=== PATIENT | female | born 1975 | race Caucasian/White ===

== ENCOUNTER 2023-07-27 07:05 | Outpatient (CLI) | payer OTHER, SELFPAY ==
--- NOTE | 2023-07-27 07:15 | CRLHL7_ITS ---
For Patients: As a result of the Century Cures Act, medical imaging exams and procedure reports are released immediately into your electronic medical record. You may view this report before your referring provider. If you have questions, please contact your health care provider. INDICATION: continual spotting COMPARISON: none TECHNIQUE: 2D reyes scale and color Doppler images were acquired of the pelvis using a transabdominal and transvaginal approach. FINDINGS: Central fibroid is present measuring 1.8 x 0.9 x 0.9 cm which appears submucosal. Fundal fibroid is present on the right measuring 2.9 x 2.4 x 2.3 cm with suggestion of mass effect upon the endometrial stripe. Additional fibroid is present on the right measuring 2.9 x 2.4 x 2.3 cm. Uterus measures 9.9 cm in length by 4.9 cm in AP diameter by 5.1 cm in transverse dimension. The myometrium has a heterogeneous echotexture. The endometrial lining measures 5 mm in composite thickness. The right ovary measures 2.6 x 1.6 x 1.6 cm in size and the left ovary measures 2.7 x 1.6 x 1.8 cm. The ovaries demonstrate normal arterial and venous blood flow on color Doppler analysis. There are no suspicious fluid collections within the cul-de-sac. Simple left ovarian cyst measuring 1.7 x 1.2 x 1.6 cm. IMPRESSION: Uterine fibroids measuring up to 2.4 cm. 1.8 cm fibroid is centrally located and appears submucosal. Endometrial thickness 5 millimeters. Dictated by Sanju Ghosh MD @ 07/27/2023 11:10:06 AM (Electronically Signed)
== END 2023-07-27 07:06 | disposition home or self-care (01) ==
LOC: US 07:10
PROVIDERS: PCP Family Medicine; Referring Provider Student in an Organized Health Care Education/Training Program; Visit Provider Obstetrics & Gynecology
DX: N93.9 Abnormal uterine and vaginal bleeding, unspecified (principal); D25.9 Leiomyoma of uterus, unspecified
CPT/HCPCS: 76830; 76856

== ENCOUNTER 2024-09-27 07:53 | Outpatient (CLI) | payer OTHER, SELFPAY ==
--- NOTE | 2024-09-27 08:15 | CRLHL7_ITS ---
For Patients: As a result of the Century Cures Act, medical imaging exams and procedure reports are released immediately into your electronic medical record. You may view this report before your referring provider. If you have questions, please contact your health care provider. INDICATION: Abnormal uterine bleeding. TECHNIQUE: Transabdominal transvaginal pelvic ultrasound. Grayscale and color spectral Doppler waveform analysis utilized. COMPARISON: July 27, 2023. FINDINGS: The uterus measures 9.1 x 5.4 x 5.6 cm. There are intrauterine fibroids. The largest is in the upper anterior uterine body/intramural location which displaces the endometrium. This lesion measures 3.4 x 2.9 x 3.0 cm. The endometrial stripe measures 9 mm, normal in a premenopausal female. Right ovary measures 3.9 x 2.8 x 4.6 cm. Left ovary measures 2.7 x 1.5 x 1.7 cm. Benign simple right ovarian cyst measuring 3.7 x 2.5 x 3.6 cm. Blood flow is documented in the ovaries both arterial and venous. No torsion. No free pelvic fluid. IMPRESSION: 1. Uterine fibroids the largest in the upper anterior uterine body largely intramural but clearly impinging upon and deforming the endometrial canal possibly explaining the patient`s constant vaginal spotting. 2. Endometrial stripe of 9 mm. 3. Simple 3.7 cm right ovarian cyst. Dictated by Severino Parish MD @ 09/27/2024 9:08:32 AM (Electronically Signed)
== END 2024-09-27 07:54 | disposition home or self-care (01) ==
LOC: US 07:53
PROVIDERS: PCP Family Medicine; Visit Provider Obstetrics & Gynecology
DX: N93.9 Abnormal uterine and vaginal bleeding, unspecified (principal); D25.1 Intramural leiomyoma of uterus; N83.291 Other ovarian cyst, right side; R93.89 Abnormal findings on diagnostic imaging of other specified body structures
CPT/HCPCS: 76830; 76856

== ENCOUNTER 2024-10-11 14:23 | Emergency (ER) | payer OTHER, SELFPAY ==
[2024-10-11 14:26] VITALS: BP 172/95; PULSE 104; RESP 24; TEMP 37.1; O2SAT 98; BMI 33.5
--- OUTSIDE RECORDS SUMMARY | 2024-10-11 14:26 | XMS_ITS | Clinical Summary ---
Author Organization [facility] Address [place], [place] [address] Care Team Providers Care Accounts Receivable Processor Name Role Phone Kaela Martinez MD Primary Care Prov ider Allergies Active Allergy Reactions Criticality Noted Date Comments Hymenoptera Allergenic Extract Anaphylaxis 12/05 Medications EPINEPHrine (EpiPen) 0.3 mg/0.3 mL auto-injectorI ndications:Bee sting allergy Inject 0.3 mg intramuscular one time if needed for Allergic Reaction. HOLD until patient calls 1 Each 1 09/26/19 25 Active metoprolol succinate (TOPROL XL) 25 mg Sustained-Rele ase tabletIndicati ons:HTN (hypertension) ,Palpitations Take 1 Tablet (25 mg) by mouth once daily. 90 Tablet 3 09/26/19 25 Active levothyroxine (SYNTHROID) 125 mcg tabletIndicati ons:Hypothyroi dism (acquired) Take 1 Tablet (125 mcg) by mouth once daily. 90 Tablet 3 09/26/19 25 Active EPINEPHrine (EpiPen) 0.3 mg/0.3 mL auto-injectorI ndications:Bee sting allergy Inject 0.3 mg intramuscular one time if needed for Allergic Reaction. HOLD until patient calls 1 Each 1 07/16/20 22 025 Discontin ued(Reord er (E-cancel not sent)) omeprazole (PRILOSEC) 40 mg Delayed-Releas e capsuleIndicat ions:Stomach upset Take 1 Capsule (40 mg) by mouth once daily before a meal. 30 Capsule 3 12/22/19 24 025 Discontin ued(*Kelsey ent states no longer taking) levothyroxine (SYNTHROID) 125 mcg tabletIndicati ons:Hypothyroi dism (acquired) Take 1 Tablet (125 mcg) by mouth once daily. 90 Tablet 2 12/22/19 24 025 Discontin ued(Reord er (E-cancel not sent)) metoprolol succinate (TOPROL XL) 25 mg Sustained-Rele ase tabletIndicati ons:HTN (hypertension) ,Palpitations TAKE 1 TABLET(25 MG) BY MOUTH EVERY DAY 90 Tablet 2 02/08/20 24 025 Discontin ued(Reord er (E-cancel not sent)) levothyroxine (SYNTHROID) 125 mcg tabletIndicati ons:Hypothyroi dism (acquired) Take 1 Tablet (125 mcg) by mouth once daily. 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 Scanner 1 scan: (1-Ord) [facility] PELVIC TA AND TV, 09/27/2024 09/26/2024 8:00 AM ARCHITECTURAL ASSOCIATE Ancillary Procedure [facility] [address] [place] [address] 09/26/2024 7:00 AM ARCHITECTURAL ASSOCIATE Office Visit [facility] [address] [place] [address] Kaela Martinez MD Physical (49 yo female) 09/26/2024 Travel 09/14/2024 Lab Requisition [facility] [phone] Darlene Lundy MD 09/05/2024 8:15 AM ARCHITECTURAL ASSOCIATE Nurse/Clinic Staff Only [facility] [address] [place] [address] Immunization/Inject ion; Immunization/Inject ion (COVID-19 vaccine) 09/05/2024 Travel 08/21/2024 8:00 AM ARCHITECTURAL ASSOCIATE Nurse/Clinic Staff Only [facility] [address] [place] [address] Immunization/Inject ion (2ND SHINGRIX VACCINE ); Immunization/Inject ion 08/21/2024 Travel from Last 3 Months Immunizations Name Administration Dates Next Due AMB Influenza, IIV3 (Age >=3 years)(Flu Clinic Only) 06/22/2013,08/08/2010 AMB Influenza, IIV4 PF (=>6 mos Flulaval,Fluzone Fluarix)(Flu Clinic Only) 07/03/2019,06/25/2016,07/19/2014 COVID-19 VACCINE SPIKEVAX (M ODERNA 50MCG/0.5ML) 12YO+ PFS 09/05/2024,07/12/2023 COVID-19 vaccine (Moderna 100mcg/0.5mL) PF, MDV 11/06/2020,10/10/2020 COVID-19 vaccine (Ecelles Carson-Bio NTech 30mcg/0.3mL) PF, MDV 07/14/2021 INFLUENZA, IIV3 PF (AGE >= 6 MO) 09/05/2024 Influenza, IIV3 (Age 6-35 mos) 05/28/2009 Influenza, IIV3 (Age >=3 years) 06/22/20 13,08/10/2012,08/08/2010,06/19/20 08,07/12/2007,08/05/2006,07/14/2005,06/26,08/08/2003 Influenza, IIV4 07/12/2023,,06/06/2020,05/06/20 18,07/23/2017,06/25/2016,08/27/2015,07/19 Influenza, Injectable, Mdck, Quadrivalent, W/preservative 07/07/2022 Td (Age >=7 Years) 04/18/2019 Tdap 08/07/2008 Zoster (Shingrix-RZV, recombinant) 08/21/2024, Family History Medical History Relation Name Comments Diabetes Daughter Heart Disease Father age 48 Quad bi pass 2016 Hyperlipidemia Father Hypertension Father Other Father malt lymphoma Diabetes Maternal Aunt Diabetes Maternal Grandfather Diabetes Maternal Grandmother Diabetes Maternal Uncle Hyperlipidemia Mother Heart Disease Sister 1 Myah Hyperlipidemia Sister 1 Myah Hypertension Sister 1 Myah Colon polyps Sister 2 Shona Hypertension Sister 2 Shona Cancer-breast No Family History Cancer-ovarian No Family History Relation Name Status Comments Daughter Father Maternal Aunt Maternal Grandfather Maternal Grandmother Maternal Uncle Mother Sister 1 Myah Sister 2 Shona Social History Tobacco Use Types Packs/Day Years Used Date Smoking Tobacco: Never Smokeless Tobacco: Never Tobacco Cessation:Counseling Given: Yes Alcohol Use Standard Drinks/Week Comments Yes 1.7 (1 standard drink = 0.6 oz p ure alcohol) PHQ-2 Answer Date Recorded PHQ-2 TOTAL SCORE 0 09/26/2024 Social Connections Answer Date Recorded Do you often feel lonely or isolated from those around you? 0 09/26/2024 Financial Resource Strain Answer Date R ecorded Difficulty of Paying Living Expenses 3 09/26/2024 Difficulty of Paying Living Expenses Not on file 09/26/2024 Food Insecurity Answer Date Recorded Do you worry your food will run out before you are able to buy more? 1 09/26/2024 Transportation Needs Answer Date Record ed Does lack of transportation keep you from medica l appointments? 1 09/26/2024 Does lack of transportation keep you from work, meetings or getting things that you need? 1 09/26/2024 Housing Stability Answer Date Recorded What is your housing situation today? 1 09/26/2024 Utilities Answer Date Recorded Do you have trouble paying f or utilities (for example, heat, electricity, water, phone)? 1 09/26/2024 Comments No Sex and Gender Information Value Date Recorded Sex Assigned at Not on file Legal Sex Female 5:46 AM ARCHITECTURAL ASSOCIATE Gender Identity Not on file Sexual Orientation Not on file Obstetrics History Para Term AB IAB SAB Ectopic Multiple Livin g Live Births 3 3 3 Date Outcome GA Total Labor Labor/2nd/3rd Weight Sex Type Anes PTL Jessy A1 A5 Name Clin Para Para Para Last Filed Vital Signs Vital Sign Reading Time Taken Comments Blood Pressure 126/87 09/26/2024 7:03 AM ARCHITECTURAL ASSOCIATE Pulse 62 09/26/2024 7:03 AM ARCHITECTURAL ASSOCIATE Temperature 36.8 C (98.3 F) 03/10/2023 2:54 PM CDT Respiratory Rate 14 11/18/2023 9:30 AM CDT Oxygen Saturation 100% 09/26/2024 7:03 AM ARCHITECTURAL ASSOCIATE Inhaled Oxygen Concentration - - Weight 114.2 kg (251 lb 12.8 oz) 09/26/2024 7:03 AM ARCHITECTURAL ASSOCIATE Height 179.7 cm (5' 10.75) 09/26/2024 7:[address] Body Mass Index 35.37 09/26/2024 7:03 AM ARCHITECTURAL ASSOCIATE Plan of Treatment Upcoming Encounters Date Type Department Care Team (Late st Contact Info) Description 10/11/2024 3:40 PM ARCHITECTURAL ASSOCIATE Office Visit [facility] [address] [place] [address] Jer Vasquez MD [address] [place] [address] 11/07/2024 2:55 PM ARCHITECTURAL ASSOCIATE Office Visit [facility] [address] [place] [address] Kaela Martinez MD [address] [place] [address] Health Maintenance Due Date Last Done Comments Pneumococcal series for age 50+ (1 of 1 - PCV) 2023 BMI (ht and wt on same day) for age 18+ 09/26/2025 09/26/2024, 10/14/2023, 07/16/2022, Additional history exists Depression screening for age 12+ 09/26/2025 09/26/2024, 10/14/2023, 07/16/2022, Additional history exists Mammogram for age 45-75 09/26/2025 09/26/19 25, 08/23/2023, 07/16/2022, Additional history exists Pap test for age 21-65 07/14/2026 , 07/14/2021, 04/18/2019, Additional history exists Tetanus booster 04/18/2029 04/18/2019, 08/07/2008 Lipids for age 45-75 09/26/2029 09/26/2024, 10/14/2023, 07/14/2021, Additional history exists Colonoscopy through age 75 10/30/203210/30, 10/30/2022, 10/30/2022 Tdap Completed 08/07/2008 Hepatitis C screening for ag e 18-79 Completed 07/16/2022 HIV for age 15-65 Completed 04/06/2024 (Co mpleted outside of [facility]) Zoster (shingles) series for age 50+ Completed 08/21/2024, 04/24/2024 COVID-19 vaccine series Completed 09/05/20, 07/12/2023, 07/07/2022, Additional history exists Influenza for age 50-64 Completed 09/05/20, 07/12/2023, 07/07/2022, Additional history exists Procedures Procedure Name Priority Date/Time Associated Diagnosis Comments SCAN-ULTRASOUND REPORT 09/27/2024 12:00 AM ARCHITECTURAL ASSOCIATE XR MAMMO TRE BILAT SCREEN Routine 09/26/2024 8:16 AM ARCHITECTURAL ASSOCIATE Visit for screening mammogram TSH Routine 09/26/2024 7:45 AM ARCHITECTURAL ASSOCIATE Hypothyroidism (acquired) BASIC METABOLIC PANEL Routine 09/26/2024 7:45 AM ARCHITECTURAL ASSOCIATE HTN (hypertension) LIPID PANEL W REFLEX MEASURED LDL Routine 09/26/2024 7:45 AM ARCHITECTURAL ASSOCIATE Screening for lipoid disorders LAB TRACKING EVENT Routine 09/13/2024 3: 00 PM ARCHITECTURAL ASSOCIATE PATH TISSUE EXAM Routine 09/13/2024 3:00 PM ARCHITECTURAL ASSOCIATE COLONOSCOPY SCREENING Routine 10/30/2022 7:55 AM ARCHITECTURAL ASSOCIATE Screening for colon cancer ANTI HCV Routine 07/16/2022 4:05 PM ARCHITECTURAL ASSOCIATE Need for hepatitis C screening test HPV HIGH RISK Routine 07/14/2021 8:15 AM ARCHITECTURAL ASSOCIATE Pap smear for cervical cancer screening from Last 3 Months or Most Recently Relevant to Health Maintenance Results * SCAN-ULTRASOUND REPORT (09/27/2024 12:00 AM ARCHITECTURAL ASSOCIATE) Anatomical Region Laterality Modality Other us Scanner OTHER Final Result * XR MAMMO TRE BILAT SCREEN (09/26/2024 8:16 AM ARCHITECTURAL ASSOCIATE) Anatomical Region Laterality Modality BREASTS, Breast Left, Breast Right Bilateral Mammography Impressions 09/27/2024 2:43 PM ARCHITECTURAL ASSOCIATE There is no radiographic evidence for malignancy. Recommend annual mammograms. MAMMOGRAM ASSESSMENT: ACR 1 Negative PATIENTS: You will also receive a letter with your examination results in an easy to read format. If you have questions about your results, please contact your referring provider. Narrative 09/27/2024 2:43 PM ARCHITECTURAL ASSOCIATE For Patients: As a result of the Century Cures Act, medical imaging exams and procedure reports are released immediately into your electronic medical record. You may view this report before your referring provider. If you have questions, please contact your health care provider. XR MAMMO TRE BILAT SCREEN [[id number]] CLINICAL HISTORY: This is an asymptomatic 49 y.o. patient. INDICATION FOR EXAM: Mammogram Screening. TECHNIQUE: CC & MLO views were obtained. This study was evaluated with the assistance of Computer-Aided Detection. Breast Tomosynthesis was used in interpretation. COMPARISON FILM: Yes 08/23/23 [facility] 07/16/22 [facility] FINDINGS: There are scattered areas of fibroglandular density. There are no dominant masses, suspicious micro calcifications or areas of architectural distortion. Kaela Martinez MD MAMMO Fi nal Result * (ABNORMAL) LIPID PANEL W REFLEX MEASURED LDL (09/26/2024 7:45 AM ARCHITECTURAL ASSOCIATE) CHOLESTEROL, TOTAL 221(H) <200 mg/dL [facility] HDL CHOLESTEROL 57 > OR = 50 mg/dL [facility] TRIGLYCERIDES 108 <150 mg/dL [facility] LDL-CHOLESTEROL 142(H) mg/dL (calc) [facility] Comment: Reference range: <100 Desirable range <100 mg/dL for primary prevention; <70 mg/dL for patients with CHD or diabetic patients with > or = 2 CHD risk factors. LDL-C is now calculated using the Keith-Pace calculation, which is a validated novel method providing better accuracy than the Friedewald equation in the estimation of LDL-C. Keith SS et al. ARAMIS. 2013;310(19): 8148-3316 (http://education.[employer]/faq/QVL415) CHOL/HDLC RATIO 3.9 <5.0 (calc) [facility] NON HDL CHOLESTEROL 164(H) <130 mg/dL (calc) [facility] Comment: For patients with diabetes plus 1 major ASCVD risk factor, treating to a non-HDL-C goal of <100 mg/dL (LDL-C of <70 mg/dL) is considered a therapeutic option. Blood BLOOD SPECIMEN / Unknown 09/26/2024 7:45 AM ARCHITECTURAL ASSOCIATE 09/26/2024 7:45 AM ARCHITECTURAL ASSOCIATE Kaela Martinez MD CHEMISTRY Fi nal Result Performing Organization Address [facility]/ZIP Co de Phone Number [employer] [address] [address], [facility] [address] * (ABNORMAL) TSH (09/26/2024 7:45 AM ARCHITECTURAL ASSOCIATE) [facility] TSH 5.71(H) mIU/L [facility] Comment: Reference Range > or = 20 Years 0.40-4.50 Ranges First trimester 0.26-2.66 Second trimester 0.55-2.73 Third trimester 0.43-2.91 Blood BLOOD SPECIMEN / Unknown 09/26/2024 7:45 AM ARCHITECTURAL ASSOCIATE 09/26/2024 7:45 AM ARCHITECTURAL ASSOCIATE Kaela Martinez MD CHEMISTRY Fi nal Result Performing Organization Address [facility]/ZIP Co de Phone Number [employer] [address] [address], [place] [facility] [address] [place] [address] * (ABNORMAL) BASIC METABOLIC PANEL (09/26/2024 7:45 AM ARCHITECTURAL ASSOCIATE) GLUCOSE 77 65 - 99 mg/dL [facility] Comment: Fasting reference interval UREA NITROGEN (BUN) 12 7 - 25 mg/dL [facility] CREATININE 0.75 0.50 - 1.03 mg/dL [facility] EGFR 96 > OR = 60 mL/min/1. 73m2 [facility] [place] BUN/CREATININE RATIO SEE NOTE: 6 - 22 (calc) [facility] Comment: Not Reported: BUN and Creatinine are within reference range. SODIUM 138 135 - 146 mmol/L [facility] [place] POTASSIUM 4.9 3.5 - 5.3 mmol/L [facility] [place] CHLORIDE 106 98 - 110 mmol/L [facility] [place] CARBON DIOXIDE 29 20 - 32 mmol/L [facility] [place] ELECTROLYTE BALANCE 3(L) 7 - 17 mmol/L (calc) [facility] [place] CALCIUM 9.1 8.6 - 10.4 mg/dL [facility] Blood BLOOD SPECIMEN / Unknown 09/26/2024 7:45 AM ARCHITECTURAL ASSOCIATE 09/26/2024 7:45 AM ARCHITECTURAL ASSOCIATE us Keala Martinez MD CHEMISTRY Fi nal Result [employer] [facility] [address] [place] [address], [place] [phone] [facility] [address] [place] [address] * LAB TRACKING EVENT (09/13/2024 3:00 PM ARCHITECTURAL ASSOCIATE) Other (Other) Client Collect / Unknown 09/13/2024 3:00 PM ARCHITECTURAL ASSOCIATE 09/14/2024 3:25 PM ARCHITECTURAL ASSOCIATE us Darlene Lundy MD LAB BILL ONLY Final Res ult [facility] [address] [place] [address], [place] * PATH TISSUE EXAM (09/13/2024 3:00 PM ARCHITECTURAL ASSOCIATE) Case Report Pathology Report Case: [id number] Authorizing Provider: Darlene Lundy MD Collected: 09/13/2024 1500 Ordering Location: [facility] Received: 09/14/2024 9295 Pathologist: Sanju Rivas MD Specimen: Endometrial Biopsy 09/19/2024 4:34 PM [facility] Final Diagnosis A) ENDOMETRIUM, BIOPSY: 1. Fragments of gland-poor endometrial stroma, see Comment 2. Fragments of infarcted polypoid endometrium, suggestive of endometrial polyp(s) 3. Background proliferative endometrium 09/19/2024 4:34 PM [facility] Comment There are fragments of endometrial stroma with an absence of associated glands. While this can occasionally be due to random sampling, it raises the possibility of endometrial stromal neoplasms. Given this and the presence of infarcted polypoid endometrium which limits evaluation, a follow-up hysteroscopic curettage is recommended to evaluate for any more significant pathology. Case seen in consultation with Dr. Peterson. 09/19/2024 4:34 PM [facility] Clinical Information Abnormal uterine bleeding 09/19/2024 4:34 PM [facility] Gross Description A) Received in formalin, labeled with the patient's name and date of , is a 2.9 x 1.7 x 0.3 cm aggregate of pink-masters mucosa admixed with clotted blood and mucous. The specimen is entirely submitted in 1 cassette. [facility] 09/14/2024 09/19/2024 4:34 PM [facility] Microscopic Description The final diagnosis is based on microscopic examination of appropriate sections of all specimens. Additional levels were examined. 09/19/2024 4:34 PM [facility] Additional Information Interpreted at [facility], Central Laboratory - [address], [place] [address] 09/19/2024 4:34 PM ARCHITECTURAL ASSOCIATE [facility] Other (Endometrial Biopsy) 09/13/2024 3:00 PM ARCHITECTURAL ASSOCIATE 09/14/2024 5:49 PM ARCHITECTURAL ASSOCIATE Darlene Lundy MD PATHOLOGY/CYTOLOGY Final Result [facility] [address] [place] [address], [place] * COLONOSCOPY (10/30/2022 7:50 AM ARCHITECTURAL ASSOCIATE) 10/30/2022 7:50 AM ARCHITECTURAL ASSOCIATE Narrative Transcriptions Keith Oro MD - 10/30/2022 8:57 AM CST Patient Name: Radha Garsia Procedure Date: 10/30/2022 Gender: Female Date of : 1975 Admit Type: Outpatient Procedure: Colonoscopy Proceduralist: Keith Oro MD , Amira Duran, CORA(Nurse), Anupama Flowers (Nurse) Referring MD: Kaela Martinez Indications/Pre-Op Diagnosis: Screening for colorectal malignant neoplasm, This is the patient's first colonoscopy Medications: Fentanyl 100 micrograms IV, Midazolam 2 mgIV, The level of sedation administered wasmoderate Procedure Description: The patient had risks, benefits and alternatives explained to andgave informed consent. The patient had a stable cardiopulmonary status and judged an adequate candidate for conscious sedation. The endoscope -[id number] was passed through the anus andadvanced to the cecum, identified by appendiceal orifice and ileocecal valve.The colonoscopy was performed without difficulty. The patient toleratedthe procedure well. The quality of the bowel preparation was good. The ileocecal valve, appendiceal orifice, and rectum were photographed. Complications: No immediate complications. Estimated Blood Loss & Specimen: Estimated blood loss: none. Specimen collected - Yes and sent to Laboratory Findings: The perianal and digital rectal examinations were normal. Scattered small and large-mouthed diverticula were found in thesigmoid colon. The exam was otherwise without abnormality. Impressions/Post-Op Diagnosis: - Diverticulosis in the sigmoid colon. - The examination was otherwise normal. - No specimens collected. Recommendation: - Patient has a contact number available for emergencies. The signsand symptoms of potential delayed complications were discussed with the patient. Return to normal activities tomorrow. Written discharge instructions were provided to the patient. - Resume previous diet. - Continue present medications. - Repeat colonoscopy in 10 years for screening purposes. Moderate Sedation: A time out was performed before the procedure. Moderate (conscious) sedation was administered by the endoscopy nurse and supervised bythe endoscopist. The following parameters were monitored: oxygensaturation, heart rate, blood pressure, EKG, CO2, respiratory rate, adequacy of pulmonary ventilation and reponse to care. Please refer to the patient's medical record flowsheets and nursing notes for moderate sedation details. Total physician intraservice time was 18 minutes. Keith Oro MD 10/30/2022 8:57:23 AM This report has been signed electronically. Note Initiated On: 10/30/2022 7:50 AM Procedure Code(s): --- Professional --- 10134, Colonoscopy, flexible; diagnostic, including collection of specimen(s) bybrushing or washing, when performed (separateprocedure) Diagnosis Code(s): --- Professional --- Z12.11, Encounter for screening formalignant neoplasm of colon K57.30, Diverticulosis of large intestine without perforation or abscess withoutbleeding CPT copyright 2020 [employer]. All rights reserved. The codes documented in this report are preliminary and upon finance manager reviewmay be revised to meet current compliance requirements. Scope In: 8:35:56 AM Scope Withdrawal Time 0 hours 7 minutes 18 seconds Scope Out: 8:50:58 AM Keith Oro MD PROCEDURE ORD Final Res ult * ANTI HCV (07/16/2022 4:05 PM ARCHITECTURAL ASSOCIATE) HEPATITIS C ANTIBODY Non-React cherri Non-React cherri 07/18/2022 7:59 PM ARCHITECTURAL ASSOCIATE [facility] [employer] Comment:Antibodies to HCV no t detected; does not exclude the possibility of exposure to HCV. Blood BLOOD SPECIMEN / Unknown Venipuncture / Unknown 07/16/2022 4:05 PM ARCHITECTURAL ASSOCIATE 07/16/2022 4:06 PM ARCHITECTURAL ASSOCIATE Kaela Martinez MD SEND OUTS Fi nal Result [facility] [address] [place] [address], * HPV HIGH RISK (07/14/2021 8:15 AM ARCHITECTURAL ASSOCIATE) TYPE 16 Negative Negative 07/16/2021 11:14 AM ARCHITECTURAL ASSOCIATE [facility] TYPE 18 Negative Negative 07/16/2021 11:14 AM ARCHITECTURAL ASSOCIATE [facility] OTHER HIGH RISK TYPES Negative Negative 07/16/2021 11:14 AM ARCHITECTURAL ASSOCIATE [facility] Other (Cervical) Non-Blood / Unknown 07/14/2021 8:15 AM ARCHITECTURAL ASSOCIATE 07/14/2021 4:55 PM ARCHITECTURAL ASSOCIATE Narrative [facility] - 07/16/2021 11:14 AM ARCHITECTURAL ASSOCIATE HPV types 16, 18, 31, 33, 35, 39, 45, 51, 52, 56, 58, 59, 66 and 68 DNA were undetectable or below the pre-set threshold. Methodology: Dopios Gilda 4800 HPV Test us Kaela Martinez MD MICROBIOLOGY nal Result [facility] [address] [place] [address], [place] from Last 3 Months or Most Recently Relevant to Health Maintenance Insurance [facility] Member Subscriber Plan / Payer (Ef fective 2024-Present) Name:Radha Garsia Relation to Subscriber:Spouse Name:Ady Severino Garcia Date of :1972 (Home) Address: [address] [place] [id number] Payer ID:[id number] (NAIC) Type:Not on file Address: [address] [address] [place] [address] [facility] Care Teams Accounts Receivable Processor Relationship Specialty Start Date End Date Kaela Martinez MD [address] [place] [id number] PCP - General 05/18/06
--- NOTE | 2024-10-11 14:37 | CRLHL7_ITS ---
For Patients: As a result of the Cures Act, medical imaging exams and procedure reports are released immediately into your electronic medical record. You may view this report before your referring provider. If you have questions, please contact your health care provider. INDICATION: Cough. TECHNIQUE: Chest 1 views. COMPARISON: None. FINDINGS: Cardiovascular and mediastinum: Cardiomediastinal silhouette is within normal limits. Lungs and pleural spaces: Lungs are clear. No sign of pleural effusion. No pneumothorax. Bones and soft tissues: No significant findings. IMPRESSION: No acute cardiopulmonary process identified. Dictated by Rivka Gonzalez MD @ 10/11/2024 3:36:25 PM (Electronically Signed)
--- NOTE | 2024-10-11 14:38 | ED_ITS ---
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 She noticed that her breathing is harder today. Her O2 sat however is 98% on room air and her temperature is 98.7. The patient denies chest pain denies leg swelling edema bleeding or clotting problems. She has been sick like a cold for couple of days and then the laryngitis and congestion started more last night. No leg swelling or edema no history of heart issues. She has a history of an aunt ovulatory bleeding and abnormal jagdeep menstrual bleeding. Related Data Home Medications ?Medication ?Instructions ?Recorded ?Confirmed levothyroxine 100 mcg tablet 100 mcg PO DAILY 08/02/23 09/27/24 metoprolol succinate 25 mg 25 mg PO DAILY 08/02/23 09/27/24 tablet,extended release 24 hr epinephrine 0.3 mg/0.3 mL 0.3 mg IM ONCE 09/13/24 09/27/24 injection, auto-injector Previous Rx's ?Medication ?Instructions ?Recorded prednisone 20 mg tablet 20 mg PO BID #10 tabs 10/11/24 Allergies Allergy/AdvReac Type Severity Reaction Status Date / Time bee venom protein (honey bee) Allergy Intermediate Anaphylaxis Verified 09/27/24 09:08 house dust mite Allergy Intermediate Sneezing Verified 09/27/24 09:08 Review of Systems Status of ROS: Reports: 6 or more systems reviewed and unremarkable except as noted in History and below PFSH PFS Social History What is your current living situation?: I presently have a place to live Problems where you live: no known problems In the past 12 months, utilities in danger of being shut off: no In past 12 months, lack of transportation kept you from medical appts, meetings, work, or getting things needed for daily living: no In the past 12 mos, have been you worried that your food would run out before you had money to buy more?: never true In the past 12 mos, the food you bought just didn't last and you didn't have money to buy more?: never true Smoking Status: Never smoker Second hand tobacco smoke exposure: No How often do you have a drink containing alcohol: 4 or more times a week How many standard drinks containing alcohol do you have on a typical day: 1 or 2 How often do you have six or more drinks on one occasion: Never AUDIT-C Alcohol total score: 4 Non-prescribed substance use: denies use How often does anyone, including family, friends and others, physically hurt you : never How often does anyone, including family, friends and others, insult or talk down to you: never How often does anyone, including family, friends and others, threaten you with harm: never How often does anyone, including family, friends and others, scream or curse at you: never Exam Narrative: Exam Narrative: Objective: In general patient is in no apparent distress she has got a laryngitis voice afebrile, pulse is 104 blood pressure 172/95, O2 sat 98% on room air HEENT is unremarkable throat clear neck is supple chest is clear no rales or wheezing maybe some slight diminished air exchange bilaterally Extremities are no edema neurologic nonfocal, good peripheral perfusion noted Const: Vital Signs, click to edit/add: Vital Signs - 24 hr 10/11/24 14:26 10/11/24 15:06 10/11/24 15:17 Temperature 98.7 F Pulse Rate 95 Pulse Rate [Pulse Oximeter] 104 H Respiratory Rate 24 18 Blood Pressure [Ri ght Upper Arm] 172/95 H Pulse Oximetry 98 100 95 Oxygen Delivery Me thod Room Air 10/11/24 15:35 Temperature Pulse Rate Pulse Rate [Pulse Oximeter] 91 Respiratory Rate Blood Pressure [Ri ght Upper Arm] 172/102 H Pulse Oximetry 99 Oxygen Delivery Me thod Room Air Course Vital Signs Vital signs: Initial Vital Signs Temperature 98.7 F 10/11/24 14:26 Temperature Source Temporal Artery Scan 10/11/24 14:26 Pulse Rate 104 H 10/11/24 14:26 Pulse Rhythm Regular 10/11/24 14:26 Respiratory Rate 24 10/11/24 14:26 Blood Pressure 172/95 H 10/11/24 14:26 Blood Pressure Mean 120 H 10/11/24 14:26 Blood Pressure Position Sitting 10/11/24 14:26 Pulse Oximetry 98 10/11/24 14:26 Vital Signs Temperature 98.7 F 10/11/24 14:26 Pulse Rate 104 H 10/11/24 14:26 Respiratory Rate 24 10/11/24 14:26 Blood Pressure 172/95 H 10/11/24 14:26 Pulse Oximetry 98 10/11/24 14:26 Temperature 98.7 F 10/11/24 14:26 Pulse Rate 91 10/11/24 15:35 Respiratory Rate 18 10/11/24 15:17 Blood Pressure 172/102 H 10/11/24 15:35 Pulse Oximetry 99 10/11/24 15:35 Oxygen Delivery Method Room Air 10/11/24 15:35 Medications Administered Medications: Discontinued Medications Generic Name Dose Route Start Last Admin Trade Name Freq PRN Reason Stop Dose Admin Sodium Chloride 1,000 mls @ 6,000 mls/hr 10/11/24 14:45 10/11/24 15:36 0.9 % Sodium Chloride 1000 Ml IV 10/11/24 14:54 Infused .Q10M MASHA Infusion Methylprednisolone Sodium Succinate 125 mg 10/11/24 14:36 10/11/24 15:03 Methylprednisolone Sod Succ 62.5 Mg/Ml (125) IVP 10/11/24 14:37 125 mg ONCE ONE Administration Medical Decision Making MDM Narrative Medical decision making narrative: [age] year white female with out a history of pulmonary concerns presents with laryngitis, cough, feeling short of breath and congested. Likely upper respiratory viral type syndrome. Patient will get COVID/influenza/RSV test. Will also get a chest x-ray just because of her concern about breathing. Will check laboratory studies as well. Will give her a dose IV Solu-Medrol well await these studies. Addendum: 3:40 p.m. the patient's chest x-ray by my review looks unremarkable. Radiology confirms. Laboratory studies show a normal white count, normal hemo globin. Normal ER profile. Except glucose is slightly elevated nonfasting 183, viral studies are pending. If these are negative home with some steroids for a few days prednisone 20 b.i.d. x5 days observation fluids rest follow-up with primary care if needed next several days. Lab Data Labs: Lab Results 10/11/24 Range/Units 14:50 WBC 8.15 (4.50-11.00) K/uL RBC 4.89 (4.00-5.20) m/uL Hgb 14.5 (12.0-16.0) gm/dL Hct 42.5 (33.0-51.0) % MCV 87 (80-100) fL MCH 30 (26-34) pg MCHC 34 (32-36) gm/dL RDW Coeff of Oleksandr 12.3 (11.5-15.5) % Plt Count 164 (140-440) K/uL Neut % (Auto) 84.6 H (42.0-72.0) % Lymph % (Auto) 10.3 L (20-44) % [place] % (Auto) 4.4 (0.0-11.0) % Eos % (Auto) 0.4 (0.0-7.0) % Baso % (Auto) 0.1 (0.0-3.0) % Neut # (Auto) 6.90 (1.7-7.0) K/uL Lymph # (Auto) 0.80 L (0.90-2.90) K/uL [place] # (Auto) 0.40 (0.00-0.90) K/UL Eos # (Auto) 0.03 (0.00-0.50) K/uL Baso # (Auto) 0.01 (0.00-0.30) K/uL Abs Immat Gran (auto) 0.02 (0.00-0.30) K/uL Imm/Tot Granulo (auto) 0.2 % Sodium 136 (135-149) mmol/L Potassium 4.2 (3.6-5.1) mmol/L Chloride 101 (96-114) mmol/L Carbon Dioxide 28 (20-32) mmol/L Anion Gap 7 (7-15) mEq/L BUN 11 (7-30) mg/dL Creatinine 0.6 (0.5-1.5) mg/dL Estimated Creat Clear 123.98 Estimated GFR 109 ml/min Glucose 183 H (60-115) mg/dL Lactate 1.7 (0.5-1.9) mmol/L Calcium 8.7 (8.4-10.6) mg/dL SARS-CoV-2 (PCR) Negative SARS-CoV-2 (Negative) Influenza Type A (PCR) Negative PCR FLU A (Negative) Influenza Type B (PCR) Negative PCR FLU B (Negative) RSV (PCR) Negative PCR RSV (Negative) Discharge Plan Discharge Clinical Impression: Acute cough, Shortness of breath Patient Disposition: Home, Self-Care Condition: Stable Additional Instructions: Rest, fluids, Tylenol as needed, prednisone 20 mg twice a day x5 days. Drink lots of water. Return to see primary care in the next 2-3 days not improving changes concerns worsening return to ED. Activity Level: Light activity Prescriptions: New prednisone 20 mg tablet 20 mg PO BID Qty: 10 0RF No Action levothyroxine 100 mcg tablet 100 mcg PO DAILY metoprolol succinate 25 mg tablet extended release 24 hr 25 mg PO DAILY epinephrine 0.3 mg/0.3 mL auto-injector 0.3 mg IM ONCE Rx Instructions: as a single dose; may repeat once Follow Up/Referrals: Kaela Martinez MD [Primary Care Provider] - Stand Alone Forms: The Local Info Instructions
--- OUTSIDE RECORDS SUMMARY | 2024-10-11 14:51 | XMS_ITS | Clinical Summary ---
Author Organization [employer] Address [place], [place] [address] Care Team Providers Care Bead Filler Name Role Phone Kaela Martinez MD Primary [...] Department Care Team Description 09/27/2024 Orders Only [facility] Scanner 1 scan: (1-Ord) [facility], 09/27/2024 09/26/2024 8:00 AM FILM RENTAL CLERK Ancillary Procedure [facility] [address] [place] [address] 09/26/2024 7:00 AM FILM RENTAL CLERK Office Visit [facility] [address] [place] [address] Kaela Martinez MD Physical (49 yo female) 09/26/2024 Travel 09/14/2024 Lab Requisition [facility] [phone] Darlene Lundy MD 09/05/2024 8:15 AM FILM RENTAL CLERK Nurse/Clinic Staff Only [facility] [address] [place] [address] Immunization/Inject ion; Immunization/Inject ion (COVID-19 vaccine) 09/05/2024 Travel 08/21/2024 8:00 AM FILM RENTAL CLERK Nurse/Clinic Staff Only [facility] [address] [place] [address] Immunization/Inject ion (2ND SHINGRIX VACCINE ); Immunization/Inject ion 08/21/2024 Travel from Last 3 Months Immunizations Name Administration Dates Next Due AMB Influenza, IIV3 (Age >=3 years)(Flu Clinic Only) 06/22/2013,08/08/2010 AMB Influenza, IIV4 PF (=>6 mos Flulaval,Fluzone Fluarix)(Flu Clinic Only) 07/03/2019,06/25/2016,07/19/2014 COVID-19 VACCINE SPIKEVAX (M ODERNA 50MCG/0.5ML) 12YO+ PFS 09/05/2024,07/12/2023 COVID-19 vaccine (Moderna 100mcg/0.5mL) PF, MDV 11/06/2020,10/10/2020 COVID-19 vaccine (ImagineOptix-Bio NTech 30mcg/0.3mL) PF, MDV 07/14/2021 INFLUENZA, IIV3 [...] on file Legal Sex Female 5:46 AM FILM RENTAL CLERK Gender Identity Not on file Sexual Orientation Not on file Obstetrics History Para Term AB IAB SAB Ectopic Multiple Livin g Live Births 3 3 3 Date Outcome GA Total Labor Labor/2nd/3rd Weight Sex Type Anes PTL Jessy A1 A5 Name Clin Para Para Para Last Filed Vital Signs Vital Sign Reading Time Taken Comments Blood Pressure 126/87 09/26/2024 7:03 AM FILM RENTAL CLERK Pulse 62 09/26/2024 7:03 AM FILM RENTAL CLERK Temperature 36.8 C (98.3 F) 03/10/2023 2:54 PM CDT Respiratory Rate 14 11/18/2023 9:30 AM CDT Oxygen Saturation 100% 09/26/2024 7:03 AM FILM RENTAL CLERK Inhaled Oxygen Concentration - - Weight 114.2 kg (251 lb 12.8 oz) 09/26/2024 7:03 AM FILM RENTAL CLERK Height 179.7 cm (5' 10.75) 09/26/2024 7:[address] Body Mass Index 35.37 09/26/2024 7:03 AM FILM RENTAL CLERK Plan of Treatment Upcoming Encounters Date Type Department Care Team (Late st Contact Info) Description 10/11/2024 3:40 PM FILM RENTAL CLERK Office Visit [facility] [address] [place] [address] Jer Vasquez MD [address] [place] [address] 11/07/2024 2:55 PM FILM RENTAL CLERK Office Visit [facility] [address] [place] [address] Kaela Martinez MD [address] [place] [address] Health Maintenance Due Date Last Done Comments [...] Diagnosis Comments SCAN-ULTRASOUND REPORT 09/27/2024 12:00 AM FILM RENTAL CLERK XR MAMMO TRE BILAT SCREEN Routine 09/26/2024 8:16 AM FILM RENTAL CLERK Visit for screening mammogram TSH Routine 09/26/2024 7:45 AM FILM RENTAL CLERK Hypothyroidism (acquired) BASIC METABOLIC PANEL Routine 09/26/2024 7:45 AM FILM RENTAL CLERK HTN (hypertension) LIPID PANEL W REFLEX MEASURED LDL Routine 09/26/2024 7:45 AM FILM RENTAL CLERK Screening for lipoid disorders LAB TRACKING EVENT Routine 09/13/2024 3: 00 PM FILM RENTAL CLERK PATH TISSUE EXAM Routine 09/13/2024 3:00 PM FILM RENTAL CLERK COLONOSCOPY SCREENING Routine 10/30/2022 7:55 AM FILM RENTAL CLERK Screening for colon cancer ANTI HCV Routine 07/16/2022 4:05 PM FILM RENTAL CLERK Need for hepatitis C screening test HPV HIGH RISK Routine 07/14/2021 8:15 AM FILM RENTAL CLERK Pap smear for cervical cancer screening from Last 3 Months or Most Recently Relevant to Health Maintenance Results * SCAN-ULTRASOUND REPORT (09/27/2024 12:00 AM FILM RENTAL CLERK) Anatomical Region Laterality Modality Other us Scanner OTHER Final Result * XR MAMMO TRE BILAT SCREEN (09/26/2024 8:16 AM FILM RENTAL CLERK) Anatomical Region Laterality Modality BREASTS, Breast Left, Breast Right Bilateral Mammography Impressions 09/27/2024 2:43 PM FILM RENTAL CLERK There is no radiographic evidence for malignancy. Recommend annual mammograms. MAMMOGRAM ASSESSMENT: ACR 1 Negative PATIENTS: You will also receive a letter with your examination results in an easy to read format. If you have questions about your results, please contact your referring provider. Narrative 09/27/2024 2:43 PM FILM RENTAL CLERK For Patients: As a result of the Century Cures Act, medical imaging exams and procedure reports are released immediately into your electronic medical record. You may view this report before your referring provider. If you have questions, please contact your health care provider. XR MAMMO TRE BILAT SCREEN [[id number]] CLINICAL HISTORY: This is an asymptomatic 49 y.o. patient. INDICATION FOR EXAM: Mammogram Screening. TECHNIQUE: CC & MLO views were obtained. This study was evaluated with the assistance of Computer-Aided Detection. Breast Tomosynthesis was used in interpretation. COMPARISON FILM: Yes 08/23/23 [facility] 07/16/22 [facility] FINDINGS: There are scattered areas of fibroglandular density. There are no dominant masses, suspicious micro calcifications or areas of architectural distortion. Kaela Martinez MD MAMMO Fi nal Result * (ABNORMAL) LIPID PANEL W REFLEX MEASURED LDL (09/26/2024 7:45 AM FILM RENTAL CLERK) CHOLESTEROL, TOTAL 221(H) <200 mg/dL [facility] HDL CHOLESTEROL 57 > OR = 50 mg/dL [facility] TRIGLYCERIDES 108 <150 mg/dL [facility] LDL-CHOLESTEROL 142(H) mg/dL (calc) [facility] [...] LDL-C. Keith SS et al. ARAMIS. 2013;310(19): 6934-6811 (http://education.DiJiPOP/faq/OOM270) CHOL/HDLC RATIO 3.9 <5.0 (calc) [facility] NON HDL CHOLESTEROL 164(H) <130 mg/dL (calc) [facility] Comment: For patients with diabetes plus 1 major ASCVD risk factor, treating to a non-HDL-C goal of <100 mg/dL (LDL-C of <70 mg/dL) is considered a therapeutic option. Blood BLOOD SPECIMEN / Unknown 09/26/2024 7:45 AM FILM RENTAL CLERK 09/26/2024 7:45 AM FILM RENTAL CLERK Kaela Martinez MD CHEMISTRY Fi nal Result Performing Organization Address [facility]/ZIP Co de Phone Number [facility] [address] [address], [facility] [address] * (ABNORMAL) TSH (09/26/2024 7:45 AM FILM RENTAL CLERK) [facility] TSH 5.71(H) mIU/L [facility] Comment: Reference Range > or = 20 Years 0.40-4.50 Ranges First trimester 0.26-2.66 Second trimester 0.55-2.73 Third trimester 0.43-2.91 Blood BLOOD SPECIMEN / Unknown 09/26/2024 7:45 AM FILM RENTAL CLERK 09/26/2024 7:45 AM FILM RENTAL CLERK Kaela Martinez MD CHEMISTRY Fi nal Result Performing Organization Address [facility]/ZIP Co de Phone Number [facility] [address] [address], [facility] [address] [place] [address] * (ABNORMAL) BASIC METABOLIC PANEL (09/26/2024 7:45 AM FILM RENTAL CLERK) GLUCOSE 77 65 - 99 mg/dL [facility] Comment: Fasting reference interval UREA NITROGEN (BUN) 12 7 - 25 mg/dL [facility] CREATININE 0.75 0.50 - 1.03 mg/dL [facility] EGFR 96 > OR = 60 mL/min/1. 73m2 [facility] [place] BUN/CREATININE RATIO SEE NOTE: 6 - 22 (calc) [facility] Comment: Not Reported: BUN and Creatinine are within reference range. SODIUM 138 135 - 146 mmol/L [facility] [place] POTASSIUM 4.9 3.5 - 5.3 mmol/L [facility] [place] CHLORIDE 106 98 - 110 mmol/L [facility] [place] CARBON DIOXIDE 29 20 - 32 mmol/L [facility] [place] ELECTROLYTE BALANCE 3(L) 7 - 17 mmol/L (calc) [facility] [place] CALCIUM 9.1 8.6 - 10.4 mg/dL [facility] Blood BLOOD SPECIMEN / Unknown 09/26/2024 7:45 AM FILM RENTAL CLERK 09/26/2024 7:45 AM FILM RENTAL CLERK us Kaela Martinez MD CHEMISTRY Fi nal Result [facility] [address] [place] [address], [place] [phone] [facility] [address] [place] [address] * LAB TRACKING EVENT (09/13/2024 3:00 PM FILM RENTAL CLERK) Other (Other) Client Collect / Unknown 09/13/2024 3:00 PM FILM RENTAL CLERK 09/14/2024 3:25 PM FILM RENTAL CLERK us Darlene Lundy MD LAB BILL ONLY Final Res ult [facility] [address] [place] [address], [place] * PATH TISSUE EXAM (09/13/2024 3:00 PM FILM RENTAL CLERK) Case Report Pathology Report Case: [id number] Authorizing Provider: Darlene Lundy MD Collected: 09/13/2024 1500 Ordering Location: [facility] Received: 09/14/2024 0343 Pathologist: Sanju Rivas MD Specimen: Endometrial Biopsy 09/19/2024 4:[address] [facility] Final Diagnosis A) ENDOMETRIUM, BIOPSY: 1. Fragments of gland-poor endometrial stroma, see Comment 2. Fragments of infarcted polypoid endometrium, suggestive of endometrial polyp(s) 3. Background proliferative endometrium 09/19/2024 4:34 PM [facility] Comment There are fragments of [...] consultation with Dr. Peterson. 09/19/2024 4:[address] [facility] Clinical Information Abnormal uterine bleeding 09/19/2024 4:[address] [facility] Gross Description A) Received in formalin, labeled with the patient's name and date of , is a 2.9 x 1.7 x 0.3 cm aggregate of pink-masters mucosa admixed with clotted blood and mucous. The specimen is entirely submitted in 1 cassette. [facility] 09/14/2024 09/19/2024 4:[address] [facility] Microscopic Description The final diagnosis is based on microscopic examination of appropriate sections of all specimens. Additional levels were examined. 09/19/2024 4:[address] [facility] Additional Information Interpreted at [facility], Central Laboratory - [address], [place] [address] 09/19/2024 4:34 PM FILM RENTAL CLERK [facility] Other (Endometrial Biopsy) 09/13/2024 3:00 PM FILM RENTAL CLERK 09/14/2024 5:49 PM FILM RENTAL CLERK Darlene Lundy MD PATHOLOGY/CYTOLOGY Final Result [facility] [address] [place] [address], [place] * COLONOSCOPY (10/30/2022 7:50 AM FILM RENTAL CLERK) 10/30/2022 7:50 AM FILM RENTAL CLERK Narrative Transcriptions Keith Oro MD - 10/30/2022 [...] adequate candidate for conscious sedation. The endoscope -[id number] was passed through the anus andadvanced to [...] 7:50 AM Procedure Code(s): --- Professional --- 43818, Colonoscopy, flexible; diagnostic, including collection of specimen(s) bybrushing or washing, when performed (separateprocedure) Diagnosis Code(s): --- Professional --- Z12.11, Encounter for screening formalignant neoplasm of colon K57.30, Diverticulosis of large intestine without perforation or abscess withoutbleeding CPT copyright 2020 [employer]. All rights reserved. The codes documented in this report are preliminary and upon medical coder reviewmay be revised to meet current compliance requirements. Scope In: 8:35:56 AM Scope Withdrawal Time 0 hours 7 minutes 18 seconds Scope Out: 8:50:58 AM Keith Oro MD PROCEDURE ORD Final Res ult * ANTI HCV (07/16/2022 4:05 PM FILM RENTAL CLERK) HEPATITIS C ANTIBODY Non-React cherri Non-React cherri 07/18/2022 7:59 PM FILM RENTAL CLERK [facility] Comment:Antibodies to HCV no t detected; does not exclude the possibility of exposure to HCV. Blood BLOOD SPECIMEN / Unknown Venipuncture / Unknown 07/16/2022 4:05 PM FILM RENTAL CLERK 07/16/2022 4:06 PM FILM RENTAL CLERK Kaela Martinez MD SEND OUTS Fi nal Result [facility] [address] [place] [address], * HPV HIGH RISK (07/14/2021 8:15 AM FILM RENTAL CLERK) TYPE 16 Negative Negative 07/16/2021 11:14 AM FILM RENTAL CLERK [facility] [employer] [facility] TYPE 18 Negative Negative 07/16/2021 11:14 AM FILM RENTAL CLERK [facility] OTHER HIGH RISK TYPES Negative Negative 07/16/2021 11:14 AM FILM RENTAL CLERK [facility] Other (Cervical) Non-Blood / Unknown 07/14/2021 8:15 AM FILM RENTAL CLERK 07/14/2021 4:55 PM FILM RENTAL CLERK Narrative [facility] - 07/16/2021 11:14 AM FILM RENTAL CLERK HPV types 16, 18, 31, 33, 35, 39, 45, 51, 52, 56, 58, 59, 66 and 68 DNA were undetectable or below the pre-set threshold. Methodology: [employer] Gilda 4800 HPV Test us Kaela Martinez MD MICROBIOLOGY nal Result [facility] [address] [place] [address], [place] from Last 3 Months or Most Recently Relevant to Health Maintenance Insurance [facility] Care Teams Bead Filler Relationship Specialty Start Date End Date Kaela Martinez MD [address] [place] [id number] PCP - General 05/18/06
[2024-10-11 15:03] LABS: Lactate* 1.7 mmol/L (0.5-1.9)
[2024-10-11] MEDS: METHYLPREDNISOLONE SOD SUCC 62.5 MG/ML (125) 125 MG IVP (15:03)
[2024-10-11] MEDS: 0.9 % SODIUM CHLORIDE 1000 ml 1,000 ML 6000 ML IV (15:03)
[2024-10-11 15:04] LABS: Basophils Absolute Auto 0.01 K/uL (0.00-0.30); Basophils Percent Auto 0.1 % (0.0-3.0); Eosinophils Absolute Auto 0.03 K/uL (0.00-0.50); Eosinophils Percent Auto 0.4 % (0.0-7.0); Hematocrit 42.5 % (33.0-51.0); Hemoglobin* 14.5 gm/dL (12.0-16.0); Immature Granulocytes Abs Auto 0.02 K/uL (0.00-0.30); Immature Granulocytes Pct Auto 0.2 %; Lymphocytes Percent Auto 10.3 % (20-44); Mean Corpuscular HGB Conc 34 gm/dL (32-36); Mean Corpuscular Hemoglobin 30 pg (26-34); Mean Corpuscular Volume 87 fL (80-100); Monocytes Percent Auto 4.4 % (0.0-11.0); Neutrophils Percent Auto 84.6 % (42.0-72.0); Platelet Count* 164 K/uL (140-440); RDW Coefficient of Variation % 12.3 % (11.5-15.5); Red Blood Count 4.89 m/uL (4.00-5.20); Slide Review Reflex No; White Blood Count* 8.15 K/uL (4.50-11.00)
[2024-10-11 15:06] VITALS: O2SAT 100
[2024-10-11 15:17] VITALS: PULSE 95; RESP 18; O2SAT 95
[2024-10-11 15:19] LABS: Chloride* 101 mmol/L (96-114); Potassium* 4.2 mmol/L (3.6-5.1); Sodium* 136 mmol/L (135-149)
[2024-10-11 15:21] LABS: Creatinine* 0.6 mg/dL (0.5-1.5); Est. Creatinine Clearance* 123.98; Estimated Glomerular Filt Rate 109 ml/min
[2024-10-11 15:22] LABS: Anion Gap 7 mEq/L (7-15); Blood Urea Nitrogen* 11 mg/dL (7-30); Calcium* 8.7 mg/dL (8.4-10.6); Carbon Dioxide* 28 mmol/L (20-32); Glucose* 183 mg/dL (60-115)
[2024-10-11 15:35] VITALS: BP 172/102; PULSE 91; O2SAT 99
[2024-10-11 15:50] LABS: PCR FLU A Negative PCR FLU A (Negative); PCR FLU B Negative PCR FLU B (Negative); PCR RSV Negative PCR RSV (Negative); SARS PCR* Negative SARS-CoV-2 (Negative)
== END 2024-10-11 16:15 | disposition home or self-care (01) ==
PROVIDERS: Emergency Provider Family Medicine; PCP Family Medicine
DX: R06.02 Shortness of breath (principal); R05.1 Acute cough
CPT/HCPCS: 36415; 71045; 80048; 83605; 85025; 87631; 94761; 96374; 99284; 99285; J2919; J7030

== ENCOUNTER 2024-11-16 06:07 | Day surgery (SDC) | payer OTHER, SELFPAY ==
[2024-11-16 06:14] VITALS: BMI 36.1
[2024-11-16] MEDS: SODIUM CHLORIDE 0.9 % (FLUSH) 10 ML SYRINGE IVF (06:30)
[2024-11-16] MEDS: 0.9 % SODIUM CHLORIDE 500 ML 500 ML 100 ML IV (06:30)
[2024-11-16 06:31] LABS: Ur HCG Qualitative* Negative (Negative)
[2024-11-16 06:42] VITALS: BP 119/76; PULSE 66; RESP 16; TEMP 37.1; O2SAT 96
--- NOTE | 2024-11-16 07:07 | W.PM.H&PU ---
History & Physical Update History & Physical Update H&P Reviewed and patient assessed: No changes noted
[2024-11-16] MEDS: LIDOCAINE 1% MDV 20 ML INJECTION (07:45)
[2024-11-16 07:58] VITALS: BP 131/86; PULSE 67; RESP 12; TEMP 36.8; O2SAT 98
--- NOTE | 2024-11-16 08:05 | P.ANES_ITS ---
Anesthesia Charges Start Date/Time Anesthesia Start Date: 11/16/24 Anesthesia Start Time: 07:20 Stop Date/Time Anesthesia Stop Date: 11/16/24 Anesthesia Stop Time: 08:00 Coding CPT Codes CPT Codes: ANESTH HYSTEROSCOPE/GRAPH - 74846 ([id number]) P2 - PATIENT W/MILD SYST DISEASE, QK - EXCELSIOR MACHINE TENDER 2-4 CNCRNT ANES PROC, QX - NECK BAND OPERATOR SVC W/ MD MED DIRECTION
--- NOTE | 2024-11-16 08:05 | W.ANESCHARGE ---
Anesthesia Charges Start Date/Time Anesthesia Start Date: 11/16/24 Anesthesia Start Time: 07:20 Stop Date/Time Anesthesia Stop Date: 11/16/24 Anesthesia Stop Time: 08:00 Coding CPT Codes CPT Codes: ANESTH HYSTEROSCOPE/GRAPH - 17793 ([id number]) P2 - PATIENT W/MILD SYST DISEASE, QK - IP PARALEGAL 2-4 CNCRNT ANES PROC, QX - RFP WRITER SVC W/ MD MED DIRECTION
[2024-11-16 08:15] VITALS: BP 127/90; PULSE 60; RESP 14; O2SAT 98
[2024-11-16] MEDS: ACETAMINOPHEN 500 MG TABLET 1000 MG PO (08:15)
--- NOTE | 2024-11-16 08:25 | W.PM.GYNPROC ---
Procedure Note Date of procedure: 11/16/24 Will [facility] bill your pro fee for this procedure?: Yes Pre-op diagnosis: Perimenopausal menorrhagia Post-op diagnosis: Endometrial polyps Procedure: Hysteroscopy Polypectomy Dilation and curettage Anesthesia: MAC and local Complications: None Surgeon: Darlene Lundy MD Estimated blood loss (mL): 5 IV fluids (mL): 400 Urine Output (mL): 50 Pathology: specimen obtained, sent to pathology (endometrial curettings) Condition: stable Disposition: same day Findings: 1. On exam under anesthesia, a perineal body defect was noted. The vagina and cervix were otherwise normal in appearance. Bimanual exam revealed uterus to be soft, mobile, anteverted, of normal size and texture. There were no palpable adnexal masses. 2. On hysteroscopy, survey of the endocervix was normal. Survey of the endometrial cavity revealed diffusely, irregular thickened endometrium with two endometrial polyps, the largest about 1.5 cm in length but thin. The other was a subcentimeter polyp. Unable to visualize tubal ostium due to scarring of the myometrium, which was diffuse but did not impede visualization of the cavity. Procedure Description: Procedure in detail: Patient was taken to the operating room with IV running. She was positioned in dorsal lithotomy position with her legs fully supported in Yellofin stirrups. Monitored anesthesia care was administered. She was prepped and draped in the usual sterile fashion. Exam under anesthesia was performed for the above-noted findings. Speculum was inserted. Cervix visualized and grasped along the anterior lip with a single-tooth tenaculum. Paracervical block was performed for a total of 10 mL of 1% lidocaine. Cervix was serially dilated to accommodate the TRUCLEAR hysteroscope. This was assembled with saline inflow and outflow in place. The line was flushed of bubbles. The hysteroscope was advanced through the cervix into the endometrial cavity for the above noted findings. The tissue morcellator was then inserted through the operating channel. Window lock was performed. Under direct visualization, the endometrial cavity was circumferentially curetted with the tissue morcellator. The hysteroscope and morcellator were then removed from the uterus. Tenaculum was removed from the anterior lip of cervix. Hemostasis was noted. Patient tolerated procedure well. She was taken to recovery area in stable condition.
[2024-11-16 08:30] VITALS: BP 126/80; PULSE 63; RESP 14; O2SAT 98
--- NOTE | 2024-11-16 08:43 | P.ANES_ITS ---
Anesthesia Charges Start Date/Time Anesthesia Start Date: 11/16/24 Anesthesia Start Time: 07:20 Stop Date/Time Anesthesia Stop Date: 11/16/24 Anesthesia Stop Time: 08:00 Coding CPT Codes CPT Codes: ANESTH HYSTEROSCOPE/GRAPH - 66936 ([id number]) QX - ADMINISTRATIVE SERVICES COORDINATOR SVC W/ MD MED DIRECTION, QK - RAILROAD SUPERVISOR OF ENGINES 2-4 CNCRNT ANES PROC, P2 - PATIENT W/MILD SYST DISEASE
--- NOTE | 2024-11-16 08:43 | W.ANESCHARGE ---
Anesthesia Charges Start Date/Time Anesthesia Start Date: 11/16/24 Anesthesia Start Time: 07:20 Stop Date/Time Anesthesia Stop Date: 11/16/24 Anesthesia Stop Time: 08:00 Coding CPT Codes CPT Codes: ANESTH HYSTEROSCOPE/GRAPH - 98348 ([id number]) QX - COLLEGE SPORTS COACH SVC W/ MD MED DIRECTION, QK - INSTRUMENT LENS GRINDER 2-4 CNCRNT ANES PROC, P2 - PATIENT W/MILD SYST DISEASE
== END 2024-11-16 08:45 | disposition home or self-care (01) ==
LOC: OR 06:08
PROVIDERS: PCP Family Medicine; Visit Provider Obstetrics & Gynecology
PROC: 0UDB8ZZ Extraction of Endometrium, Via Natural or Artificial Opening Endoscopic (ICD-10-PCS; CPT 58558; principal; 2024-11-16 07:15)
DX: N92.4 Excessive bleeding in the premenopausal period (principal); N84.0 Polyp of corpus uteri
CPT/HCPCS: 58558; 00952; 36415; 81025; 86850; 86900; 86901; 88305; 88341; 88342; J2003; A9270; C1782; J1100; J2250; J2405; J2704; J3010; J3490; J7030

== ENCOUNTER 2024-11-27 07:35 | Outpatient (CLI) | payer OTHER, SELFPAY ==
--- NOTE | 2024-11-27 08:00 | CRLHL7_ITS ---
For Patients: As a result of the Century Cures Act, medical imaging exams and procedure reports are released immediately into your electronic medical record. You may view this report before your referring provider. If you have questions, please contact your health care provider. INDICATIONS: Low-grade endometrial stromal sarcoma. TECHNIQUE: CT chest, abdomen and pelvis acquired with 123 cc of Isovue 370 IV contrast. COMPARISON: Chest radiograph 10/11/2024. Pelvic ultrasound 09/27/2024. FINDINGS: Chest: No pleural or pericardial effusions. No pathologic lymphadenopathy. Thoracic aorta and main pulmonary arteries are normal in caliber. Heart size within normal limits. Soft tissues of the thoracic wall are unremarkable. No pneumothorax. Central airways are patent. Peripheral 4 mm left lower lobe nodule on image 64 of series 2. Right lower lobe 6 mm nodule on image 58. Lungs otherwise clear. Abdomen: Fatty change of the liver. No focal liver lesion. Cholecystectomy. No biliary ductal dilatation. Spleen, pancreas and adrenal glands are unremarkable. No urolithiasis, hydronephrosis or suspicious renal lesion. Distal colonic diverticulosis without evidence of acute diverticulitis. GI tract including the appendix is otherwise unremarkable. No pathologic abdominal lymphadenopathy or free fluid. Abdominal vasculature as imaged is unremarkable. Pelvis: Mildly heterogeneous low-attenuation focus in the anterior body/fundus of the uterus as seen on recent ultrasound is similar. Uterus, adnexal regions and bladder as imaged are unremarkable. Sigmoid diverticulosis. No pathologic lymphadenopathy or free fluid. Bone windows: Degenerative changes spine and pelvis. No acute or suspicious abnormality. IMPRESSION: 1. Indeterminate bilateral subcentimeter pulmonary nodules. Follow-up chest CT should be considered in 3-6 months. 2. No pathologic lymphadenopathy in the chest. 3. No evidence of metastatic disease in the abdomen or pelvis. Dictated by Garrison Bedoya MD @ 11/27/2024 10:09:06 AM Please note that all CT scans at this facility use dose modulation, iterative reconstruction, and/or weight-based dosing when appropriate to reduce radiation dose to as low as reasonably achievable. Dictated by: Garrison Bedoya MD @ 11/27/2024 10:09:29 (Electronically Signed)
== END 2024-11-27 07:36 | disposition home or self-care (01) ==
LOC: CT 07:38
PROVIDERS: PCP Family Medicine; Visit Provider Obstetrics & Gynecology Gynecologic Oncology
DX: D39.0 Neoplasm of uncertain behavior of uterus (principal); R91.8 Other nonspecific abnormal finding of lung field
CPT/HCPCS: 71260; 74177; Q9967

== ENCOUNTER 2024-11-30 16:04 | Outpatient (CLI) | payer OTHER, SELFPAY ==
[2024-12-02 23:25] LABS: Follicle Stimulating Hormone 12.1 IU/L
== END 2024-11-30 16:05 | disposition home or self-care (01) ==
LOC: LAB 16:06
PROVIDERS: PCP Family Medicine; Visit Provider Obstetrics & Gynecology Gynecologic Oncology
DX: C54.2 Malignant neoplasm of myometrium (principal)
CPT/HCPCS: 36415; 83001